=== PATIENT | male | born 1940 | race African-American/Black ===

== ENCOUNTER 2023-07-23 08:43 | Emergency (ER) | payer OTHER, MEDICAID ==
[~2023-07-23] VITALS: Ht 170.2 cm; Wt 82.9 kg
[2023-07-23] MEDS ORDERED: HYDR-4798 PO (12:31)
[2023-07-23 14:06] VITALS: BP 164/62; PULSE 75; RESP 15; TEMP 98.6; O2SAT 97
== END 2023-07-23 14:09 | disposition home or self-care (01) ==
LOC: ER 08:43
DX: S23.3XXA Sprain of ligaments of thoracic spine, initial encounter (principal); S13.8XXA Sprain of joints and ligaments of other parts of neck, initial encounter; I10 Essential (primary) hypertension; M19.90 Unspecified osteoarthritis, unspecified site; Z98.890 Other specified postprocedural states; X58.XXXA Exposure to other specified factors, initial encounter; Y93.89 Activity, other specified; Y92.89 Other specified places as the place of occurrence of the external cause; Y99.8 Other external cause status
CPT/HCPCS: 72125; 72128; 93005

== ENCOUNTER 2024-10-08 08:19 | Inpatient (IN) | payer MEDICARE, MEDICAID ==
[~2024-10-08] VITALS: Ht 167.6 cm; Wt 81.3 kg
[~2024-10-08 08:19] MED LIST: HYDR-4798 PO
[2024-10-08 08:54] LABS: Hematocrit 40.9 % (41.0-53.0); Hemoglobin 13.2 g/dL (13.5-17.5); Mean Corpuscular Hemoglobin 28.9 pg (28.0-32.0); Mean Corpuscular Volume 89.5 fL (80.0-100.0); Nucleated Red Blood Cells % 0.0 %
--- NOTE | 2024-10-08 09:01 | DVH ---
CHEST RADIOGRAPH Indication: chest pain Technique: Single frontal view of the chest was obtained COMPARISON: None FINDINGS: Lines and Tubes: None Lungs: Clear Pleura: No effusion. No pneumothorax. Cardiomediastinal contours: Unremarkable Bones: Unremarkable IMPRESSION: No acute disease.
[2024-10-08 09:11] VITALS: PULSE 65; RESP 20; O2SAT 97
--- NOTE | 2024-10-08 09:18 | ED.PDOC ---
History of Present Illness HPI Comments 84-year-old male with PMHX COPD, DM, [place] presents with a chief complaint of chest pain x 2 weeks with associated SOB. Patient states that his pain is localized to his sternal region, nonradiating, nonexertional, and describes as tightness. Patient mentions that he has an inhaler at home that he uses, but it has not provided him with any relief. Patient is not on supplemental oxygen. Chief Complaint: Chest Pain Time Seen by MD: 09:05 Primary Care Provider: unknown Reviewed Notes: Medications, Allergies Allergies: Coded Allergies: NO KNOWN ALLERGIES (Unverified , 07/23/23) Home Meds Active Scripts Hydrocodone-Acetaminophen (Hydrocodone Bitartrate/AC 10-325 mg) 1 Tab Tab, 1 TAB PO QIDPRN, #20 TAB Prov:YASMEEN BURLESON MD 07/23/23 Information Source: Patient Mode of Arrival: Ambulatory Severity: Moderate Timing: Days Duration: Since onset Prehospital treatment: None Past Medical History PAST MEDICAL HISTORY: Arthritis, COPD, DM, HTN Past Medical History (Other): HARD OF HEARING Family History Family History: Reviewed,noncontributory to illness Social History Smoker: Non-Smoker Alcohol: Denies ETOH Use Drugs: Denies Drug Use Lives In: Home Constitutional: denies: chills, diaphoresis, fatigue, fever, malaise, sweats, w eakness, others EENTM: denies: blurred vision, double vision, ear bleeding, ear discharge, ear drainage, ear pain, ear ringing, eye pain, eye redness, hearing loss, mouth pain, mouth swelling, nasal discharge, nose bleeding, nose congestion, nose pain, photophobia, tearing, throat pain, throat swelling, voice changes, others Respiratory: reports: shortness of breath; denies: cough, hemoptysis, orthopnea, SOB at rest, SOB with excertion, stridor, wheezing, others Cardiovascular: reports: chest pain; denies: dizzy spells, diaphoresis, Dyspnea on exertion, edema, irregular heart beat, left arm pain, lightheadedness, palpitations, PND, syncope, others Gastrointestinal: denies: abdomen distended, abdominal pain, blood streaked bowels, constipated, diarrhea, dysphagia, difficulty swallowing, hematemesis, melena, nausea, poor appetite, poor fluid intake, rectal bleeding, rectal pain, vomiting, others Genitourinary: denies: burning, dysuria, flank pain, frequency, hematuria, incontinence, penile discharge, penile sore, pain, testicle pain, testicle swelling, urgency, others Neurological: denies: dizziness, fainting, headache, left sided numbness, left sided weakness, numbness, paresthesia, pre-existing deficit, right sided numbness, right sided weakness, seizure, speech problems, tingling, tremors, weakness, others Musculoskeletal: denies: back pain, gout, joint pain, joint swelling, muscle pain, muscle stiffness, neck pain, others Integumetry: denies: bruises, change in color, change in hair/nails, dryness, laceration, lesions, lumps, rash, wounds, others Allergic/Immunocompromised: denies: Difficulty Healing, Frequent Infections, Hives, Itching, others Hematologic/Lymphatic: denies: anemia, blood clots, easy bleeding, easy bruising, swollen glands, others Endocrine: denies: excessive hunger, excessive sweating, excessive thirst, excessive urination, flushing, intolerance to cold, intolerance to heat, unexplained weight gain, unexplained weight loss, others Psychiatric: denies: anxiety, bipolar disorder, depression, hopeless, panic disorder, schizophrenia, sleepless, suicidal, others All Other Systems: Reviewed and Negative Physical Exam General Appearance: No Apparent Distress, Normal HEENT: Normal ENT Inspection, Pharynx Normal, TMs Normal Neck: Full Range of Motion, Non-Tender, Normal, Normal Inspection Respiratory: Chest Non-Tender, Lungs Clear, No Accessory Muscle Use, No Respiratory Distress, Normal Breath Sounds Cardiovascular: No Edema, No JVD, No Murmur, No Gallop, Normal Peripheral Pulses, Regular Rate/Rhythm Breast Exam: Deferred Gastrointestinal: No Organomegaly, Non Tender, No Pulsatile Mass, Normal Bowel Sounds, Soft Genitalia: Deferred Pelvic: Deferred Rectal: Deferred Extremities: No calf tenderness, Normal capillary refill, Normal inspection, Normal range of motion, Non-tender, No pedal edema Musculoskeletal : Apperance: Normal Neurologic: Alert, skiagrapher II-XII nml as Tested, No Motor Deficits, Normal Affect, Normal Mood, No Sensory Deficits Cerebellar Function: Normal Reflexes: Normal Skin: Dry, Normal Color, Warm Lymphatic: No Adenopathy Was a procedure done? Was a procedure done?: No Differential Dx Considerations may include: ACS, CVA, viral syndrome, electrolyte abnormality, pneumonia X-Ray, Labs, Meds, VS Vital Signs Date Time Temp Pulse Resp B/P (MAP) Pulse Ox O2 Delivery O2 Flow Rate FiO2 10/08/24 09:31 65 20 183/63 10/08/24 09:11 65 20 97 Room Air* 0 21 10/08/24 09:11 98.0 65 20 183/63 (103) 97 98.0 10/08/24 08:27 62 10/08/24 08:21 98.0 61 18 191/55 92 98.0 Lab Test 10/08/24 09:55 10/08/24 08:43 Range/Units Troponin I High Sensitivity Pending 15 </=54 ng/L White Blood Count 6.4 4.4-10.8 10^3/uL Red Blood Count 4.57 4.5-5.90 10^6/uL Hemoglobin 13.2 L 13.5-17.5 g/dL Hematocrit 40.9 L 41.0-53.0 % Mean Corpuscular Volume 89.5 80.0-100.0 fL Mean Corpuscular Hemoglobin 28.9 28.0-32.0 pg Mean Corpuscular Hemoglobin Concent 32.3 32.0-36.0 g/dL Red Cell Distribution Width 14.4 H 11.8-14.3 % Platelet Count 165 140-450 10^3/uL Mean Platelet Volume 8.0 6.9-10.8 fL Neutrophils (%) (Auto) 64.7 37.0-80.0 % Lymphocytes (%) (Auto) 24.6 10.0-50.0 % Monocytes (%) (Auto) 8.1 0.0-12.0 % Eosinophils (%) (Auto) 1.9 0.0-7.0 % Basophils (%) (Auto) 0.7 0.0-2.0 % Neutrophils # (Auto) 4.2 1.6-8.6 10 ^3/uL Lymphocytes # (Auto) 1.6 0.4-5.4 10 ^3/uL Monocytes # (Auto) 0.5 0-1.3 10 ^3/uL Eosinophils # (Auto) 0.1 0-0.8 10 ^3/uL Basophils # (Auto) 0 0-0.2 10 ^3/uL Nucleated Red Blood Cells 0.0 % Sodium Level 142 136-145 mmol/L Potassium Level 3.9 3.5-5.1 mmol/L Chloride Level 107 98-107 mmol/L Carbon Dioxide Level 25 20-31 mmol/L Anion Gap 10 5-15 Blood Urea Nitrogen 23 9-23 mg/dL Creatinine 1.34 H 0.700-1.30 mg/dL Glomerular Filtration Rate Calc 52 >90 mL/min BUN/Creatinine Ratio 17.2 10.0-20.0 Serum Glucose 91 74-106 mg/dL Calcium Level 9.7 8.7-10.4 mg/dL Current Medications Medications (Trade) Dose Ordered Sig/Julian Route Start Time Stop Time Status Last Admin Morphine Sulfate 4 mg ONCE ONCE IV 10/08/24 09:15 10/08/24 09:16 DC 10/08/24 09:31 Ondansetron HCl (Zofran) 4 mg ONCE ONCE IV 10/08/24 09:15 10/08/24 09:16 DC 10/08/24 09:29 Time of 1ST Reevaluation: 09:35 Reevaluation 1ST: Unchanged Patient Education/Counseling: Diagnosis, Treatment Family Education/Counseling: No Family Present SEPSIS Sepsis Screen Date sepsis recognized/suspect: Oct 08, 2024 Time Sepsis recognized/suspect: 820 Recent Procedure: No On Antibiotic Therapy: No Respiratory Rate >20: No Heart Rate >90: No Temp<36 C (96.8 F) or >38.3 C: No SBP <90 or MAP <65 mmHG: No New Acute Mental Status Change: No Is the patient on CPAP, BIPAP,: No Physician Orders Chest Portable (10/08/24 08:28) Electrocardigram (10/08/24 08:28) Troponin-I Hs (10/08/24 09:28) Troponin-I Hs (10/08/24 11:28) Electrocardigram (10/08/24 09:28) Electrocardigram (10/08/24 11:28) Vital Signs Date Time Temp Pulse Resp B/P (MAP) Pulse Ox O2 Delivery O2 Flow Rate FiO2 10/08/24 09:31 65 20 183/63 10/08/24 09:11 65 20 97 Room Air* 0 21 10/08/24 09:11 98.0 65 20 183/63 (103) 97 98.0 10/08/24 08:27 62 10/08/24 08:21 98.0 61 18 191/55 92 98.0 Laboratory Tests Test 10/08/24 08:43 White Blood Count 6.4 10^3/uL (4.4-10.8) Medications Medications Dose Ordered Sig/Julian Route Start Time Stop Time Status Last Admin Dose Admin Morphine Sulfate 4 mg ONCE ONCE IV 10/08/24 09:15 10/08/24 09:16 DC 10/08/24 09:31 Ondansetron HCl 4 mg ONCE ONCE IV 10/08/24 09:15 10/08/24 09:16 DC 10/08/24 09:29 Departure 1 Departure Time of Disposition: 10:04 (Patient presented with chest pain that was co ncerning for possible STEMI, ACS, PE, Pneumonia, Muscle Strain, COPD, Dissection. Data: 1. I ordered and reviewed the result of at least 3 labs including a CBC, BMP, and Troponin. 2. I independently interpreted the following tests: EKG which shows sinus arrhythmia and Chest X-ray which shows benign chest.Risk:This patient has a high risk of morbidity due to further diagnostic testing or treatment and may suffer from an acute cardiac or respiratory disorder. Workup reveals concern for ACS and patient should be admitted for further workup and possible expert consultation. ) Impression: Primary Impression: Acute chest pain Disposition: ADMITTED INPATIENT Admit to: Med Surg Condition: Serious Critical Care Note Critical Care Time?: Yes Critical care comment: Acute chest pain Authorized and Performed by: Sandee Bravo MD Total critical care time: Approximately 42 minutes Due to a high probability of clinically significant, life threatening deterioration, the patient required my highest level of preparedness to intervene emergently and I personally spent this critical care time directly and personally managing the patient. This critical care time included obtaining a history; examining the patient; pulse oximetry; ordering and review of studies; arranging urgent treatment with development of a management plan; evaluation of patient's response to treatment; frequent reassessment; and, discussions with other providers. This critical care time was performed to assess and manage the high probability of imminent, life-threatening deterioration that could result in multi-organ failure. It was exclusive of separately billable procedures and treating other patients and teaching time. Please see my other sections and the rest of the note for further information on patient assessment and treatment. Stability Stability form required: No Heart Score Heart Score: Heart Score Response (Comments) Value History Moderate Suspicious 1 EKG Repolarization Disturb 1 Age >65 2 Risk Factors >3 or Hx ASHD 2 Troponin Normal limit 0 Total 6 I personally scribed for SANDEE BRAVO MD ([email or web address]) on 10/08/24 at 09:18. Electronically submitted by Steven Jane [email or web address]). SANDEE BRAVO MD Oct 08, 2024 09:18
[2024-10-08 09:20] LABS: Potassium 3.9 mmol/L (3.5-5.1); Sodium 142 mmol/L (136-145)
[2024-10-08 09:21] LABS: Anion Gap 10 (5-15); Calcium 9.7 mg/dL (8.7-10.4); Carbon Dioxide 25 mmol/L (20-31)
[2024-10-08 09:26] LABS: Blood Urea Nitrogen 23 mg/dL (9-23); Chloride 107 mmol/L (98-107); Glucose 91 mg/dL (74-106)
[2024-10-08 09:27] LABS: BUN/Creatinine Ratio 17.2 (10.0-20.0)
[2024-10-08] MEDS: ONDANSETRON HCL 4 MG/2 ML VIAL IV ONE (09:29)
[2024-10-08] MEDS: MORPHINE SULFATE 4 MG/ML SYR/VIAL IV ONE (09:31)
[2024-10-08] MEDS ORDERED: ROSU10TA64 PO (11:40)
[2024-10-08] MEDS ORDERED: FLUT1AER3 INH (11:40)
[2024-10-08] MEDS ORDERED: NIFE1TAB31 PO (11:40)
[2024-10-08] MEDS ORDERED: ASPI81CH49 PO (11:40)
[2024-10-08] MEDS ORDERED: ENAL1TAB47 PO (11:40)
[2024-10-08] MEDS ORDERED: TAMS0.4C39 PO (11:40)
[2024-10-08] MEDS ORDERED: METF-370 PO (11:40)
[2024-10-08] MEDS ORDERED: NITROGLYCERIN 0.4 MG SL TAB SL PRN (11:45)
[2024-10-08] MEDS ORDERED: HYDROcodone-ACET 5/325MG TAB PO PRN (11:45)
[2024-10-08] MEDS ORDERED: ONDANSETRON HCL 4 MG/2 ML VIAL IV PRN (11:45)
[2024-10-08] MEDS ORDERED: ACETAMINOPHEN 325 MG TAB PO PRN (11:45)
[2024-10-08] MEDS ORDERED: DOCUSATE SOD 100 MG CAP PO PRN (11:45)
[2024-10-08] MEDS ORDERED: MORPHINE SULFATE INJ 2 MG/ml SYRG IV PRN (11:45)
--- NOTE | 2024-10-08 11:48 | DVHHP2 ---
History of Present Illness Reason for Visit: Chest pain, shortness of breath History of Present Illness Peyton Nair is an 84-year-old male with past medical history of hypertension, hyperlipidemia, diabetes, COPD, arthritis, and hard of hearing who came to the hospital for chest pain. Patient states he has been experiencing sharp chest pain with associated shortness of breath for about 3 months. He states his symptoms worsen with exertion. He has not sought medical treatment for his chest pain until today. The pain was not getting better so he decided to get evaluated. Patient does follow up with a primary care provider, but is not followed by cardiology. 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) Musculoskeletal: Osteoarthritis Endocrine: Diabetes Past Surgical History: Other (prostate surgery) Family History: None Smoke: No ALCOHOL: none Drugs: None Lives: Alone Domestic Violence: Neg Review of Systems Constitutional: No: Fever, Chills, Sweats, Weakness, Malaise, Other Eyes: No: Pain, Vision change, Conjunctivae inflammation, Eyelid inflammation, Other, Redness ENT: No: Ear pain, Ear discharge, Nose pain, Nose discharge, Nose congestion, Mouth pain, Mouth swelling, Throat pain, Throat swelling, Other Respiratory: Shortness of breath; No: Cough, Dry, SOB with excertion, Wheezing, Hemoptysis, Pleuritic Pain, Sputum, Wheezing, Other Cardiovascular: Chest Pain; No: Palpitations, Orthopnea, Paroxysmal Noc. Dyspnea, Edema, Lt Headedness, Other Gastrointestinal: No: Nausea, Vomiting, Abdominal Pain, Diarrhea, Constipation, Melena, Hematochezia, Other Genitourinary: No Dysuria, No Frequency, No Incontinence, No Hematuria, No Retention, No Other Musculoskeletal: No: other, neck pain, shoulder pain, arm pain, back pain, hand pain, leg pain, foot pain Skin: No: Rash, Lesions, Jaundice, Bruising, Other Neurological: No: Weakness, Numbness, Incoordination, Change in speech, Confusion, Seizures, Other Allergies: Coded Allergies: NO KNOWN ALLERGIES (Unverified , 07/23/23) Exam Vital Signs Vital Signs Date Time Temp Pulse Resp B/P (MAP) Pulse Ox O2 Delivery O2 Flow Rate FiO2 10/08/24 11:30 74 10/08/24 10:01 98.0 18 109/55 (73) 95 98.0 10/08/24 09:11 Room Air* 0 21 General Appearance: Alert, Oriented X3, Cooperative, mild distress HEENT: Atraumatic, PERRLA, Other (hard of hearing) Respiratory: Clear to auscultation, Normal air movement Cardiovascular: Regular rate, Normal S1, Normal S2, No murmurs Abdominal: Normal bowel sounds, Soft, No tenderness, No hepatospenomegaly Extremities: No clubbing, No cyanosis, No edema, Normal pulses Skin: No rashes, No breakdown, No significant lesion Neuro: Normal gait, Normal speech, Strength at 5/5 X4 ext, Normal tone Psych/Mental Status: Mental status NL, Mood NL Labs/Xrays Labs Test 10/08/24 09:55 10/08/24 08:43 Range/Units Troponin I High Sensitivity 14 </=54 ng/L White Blood Count 6.4 4.4-10.8 10^3/uL Red Blood Count 4.57 4.5-5.90 10^6/uL Hemoglobin 13.2 L 13.5-17.5 g/dL Hematocrit 40.9 L 41.0-53.0 % Mean Corpuscular Volume 89.5 80.0-100.0 fL Mean Corpuscular Hemoglobin 28.9 28.0-32.0 pg Mean Corpuscular Hemoglobin Concent 32.3 32.0-36.0 g/dL Red Cell Distribution Width 14.4 H 11.8-14.3 % Platelet Count 165 140-450 10^3/uL Mean Platelet Volume 8.0 6.9-10.8 fL Neutrophils (%) (Auto) 64.7 37.0-80.0 % Lymphocytes (%) (Auto) 24.6 10.0-50.0 % Monocytes (%) (Auto) 8.1 0.0-12.0 % Eosinophils (%) (Auto) 1.9 0.0-7.0 % Basophils (%) (Auto) 0.7 0.0-2.0 % Neutrophils # (Auto) 4.2 1.6-8.6 10 ^3/uL Lymphocytes # (Auto) 1.6 0.4-5.4 10 ^3/uL Monocytes # (Auto) 0.5 0-1.3 10 ^3/uL Eosinophils # (Auto) 0.1 0-0.8 10 ^3/uL Basophils # (Auto) 0 0-0.2 10 ^3/uL Nucleated Red Blood Cells 0.0 % Sodium Level 142 136-145 mmol/L Potassium Level 3.9 3.5-5.1 mmol/L Chloride Level 107 98-107 mmol/L Carbon Dioxide Level 25 20-31 mmol/L Anion Gap 10 5-15 Blood Urea Nitrogen 23 9-23 mg/dL Creatinine 1.34 H 0.700-1.30 mg/dL Glomerular Filtration Rate Calc 52 >90 mL/min BUN/Creatinine Ratio 17.2 10.0-20.0 Serum Glucose 91 74-106 mg/dL Calcium Level 9.7 8.7-10.4 mg/dL CHEST RADIOGRAPH FINDINGS: Lines and Tubes: None Lungs: Clear Pleura: No effusion. No pneumothorax. Cardiomediastinal contours: Unremarkable Bones: Unremarkable IMPRESSION: No acute disease. SEPSIS Sepsis Screen Date sepsis recognized/suspect: Oct 08, 2024 Time Sepsis recognized/suspect: 910 Recent Procedure: No On Antibiotic Therapy: No Respiratory Rate >20: No Heart Rate >90: No Temp<36 C (96.8 F) or >38.3 C: No SBP <90 or MAP <65 mmHG: No New Acute Mental Status Change: No Is the patient on CPAP, BIPAP,: No Physician Orders Chest Portable (10/08/24 08:28) Electrocardigram (10/08/24 08:28) Troponin-I Hs (10/08/24 11:28) Electrocardigram (10/08/24 09:28) Electrocardigram (10/08/24 11:28) Admit (10/08/24 11:35) Code Status (10/08/24 11:35) 2 Gm Sodium Diet (10/08/24 Lunch) Hydrocodone-Acet 5/325mg Tab (Hobbs 5/32 (10/08/24 11:45) Ondansetron Hcl (Zofran) (10/08/24 11:45) Docusate Sodium Capsule (Colace Capsule) (10/08/24 11:45) Complete Blood Count (10/09/24 04:00) Comprehensive Metabolic Panel (10/09/24 04:00) Echo 2d Mode Cardiac Dop (10/08/24 11:35) Condition: Serious (10/08/24 11:35) Acetaminophen Tablet (Tylenol Tablet) (10/08/24 11:45) Nitroglycerin Sublingual (Ntrostat Subli (10/08/24 11:45) Morphine Sulfate Injection (10/08/24 11:45) Stat Ekg For Chest Pain (10/08/24 11:35) Notify Md Of Changes From Base (10/08/24 11:35) Racket Stringer For 24 Hours (10/08/24 11:35) Emergency Dysrhythmia Protocol (10/08/24 11:35) Rhythm Strips Once Every Shift (10/08/24 11:35) Oxygen By Nasal Cannula (10/08/24 11:35) Hydrocodone-Acet 10/325mg Tab (Hobbs 10/ (10/08/24 12:00) Vital Signs Date Time Temp Pulse Resp B/P (MAP) Pulse Ox O2 Delivery O2 Flow Rate FiO2 10/08/24 11:30 74 10/08/24 10:01 98.0 70 18 109/55 (73) 95 98.0 10/08/24 10:01 70 18 109/55 10/08/24 09:52 76 10/08/24 09:31 65 20 183/63 10/08/24 09:11 65 20 97 Room Air* 0 21 10/08/24 09:11 98.0 65 20 183/63 (103) 97 98.0 10/08/24 08:27 62 10/08/24 08:21 98.0 61 18 191/55 92 98.0 Laboratory Tests Test 10/08/24 08:43 White Blood Count 6.4 10^3/uL (4.4-10.8) Medications Medications Dose Ordered Sig/Julian Route Start Time Stop Time Status Last Admin Dose Admin Morphine Sulfate 4 mg ONCE ONCE IV 10/08/24 09:15 10/08/24 09:16 DC 10/08/24 09:31 4 MG Ondansetron HCl 4 mg ONCE ONCE IV 10/08/24 09:15 10/08/24 09:16 DC 10/08/24 09:29 4 MG Assessment/Plan Assessment/Plan Assessment: Acute chest pain, Hypertension, Hyperlipidemia, COPD, Diabetes, Plan: Admit to Tele, Cardiology consult, ECHO, Accu checks Q AC&HS with sliding scale, TSH, Lipid panel, A1c, Home medications reconciled, Plan discussed with: Patient My Orders Orders - SCHWING,LETA R STUMP SHOOTER Procedure Category Date Status Time Admit ADMIT 10/08/24 Transmitted 11:35 Code Status CODE 10/08/24 Transmitted 11:35 2 Gm Sodium Diet DIET 10/08/24 Transmitted Lunch Hydrocodone-Acet PHA 10/08/24 Transmitted 5/325mg Tab (Hobbs 11:45 Ondansetron Hcl PHA 10/08/24 Transmitted (Zofran) 11:45 Docusate Sodium PHA 10/08/24 Transmitted Capsule (Colace 11:45 Complete Blood Count LAB 10/09/24 Verified 04:00 Comprehensive LAB 10/09/24 Verified Metabolic Panel 04:00 Echo 2d Mode Cardiac US 10/08/24 Logged DOP 11:35 Condition: Serious DEZ 10/08/24 Transmitted 11:35 Acetaminophen Tablet PHA 10/08/24 Transmitted (Tylenol Tablet) 11:45 Nitroglycerin PHA 10/08/24 Transmitted Sublingual (Ntrostat 11:45 Morphine Sulfate PHA 10/08/24 Transmitted Injection 11:45 Stat Ekg For Chest DEZ 10/08/24 Transmitted Pain 11:35 Notify Md Of Changes DEZ 10/08/24 Transmitted From Base 11:35 Racket Stringer For DEZ 10/08/24 Transmitted 24 Hours 11:35 Emergency Dysrhythmia DEZ 10/08/24 Transmitted Protocol 11:35 Rhythm Strips Once [facility] 10/08/24 Transmitted Every Shift 11:35 Oxygen By Nasal RT 10/08/24 Transmitted Cannula 11:35 Hydrocodone-Acet PHA 10/08/24 Transmitted 10/325mg Tab (Hobbs 12:00 Date of Service: Oct 08, 2024 Billing Provider: LETA VAZQUEZ Common Visit Codes: [id number] INP/OBS CARE (MOD) LETA VAZQUEZP Oct 08, 2024 11:48
[2024-10-08] MEDS ORDERED: DEXTROSE (50%) 50ML SYRG IV PRN (12:00)
[2024-10-08] MEDS: InsuLIN REG 1unit/0.01ml Soln (100units/ml) SC SCH ×2 (17:00→21:51)
[2024-10-08] MEDS: ACCU-CHEK COMFORT CURVE STRIP VI SCH (17:20)
[2024-10-08 19:20] VITALS: BP 180/55; PULSE 68; RESP 17; TEMP 97.3; O2SAT 93
[2024-10-08 19:35] VITALS: BP 159/61; PULSE 71; RESP 18; O2SAT 94
[2024-10-08] MEDS: ATORVASTATIN 20 MG TAB PO SCH (21:49)
[2024-10-09] VITALS (13 sets, daily range): BP systolic 132–173; BP diastolic 51–71; PULSE 53–89; RESP 12–16; TEMP 97.4–99; O2SAT 93–98
[2024-10-09] MEDS: HYDROcodone-ACET 10/325MG TAB PO PRN (01:01)
--- NOTE | 2024-10-09 06:31 | ECG ---
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
--- NOTE | 2024-10-09 06:31 | ECG ---
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
[2024-10-09 06:36] LABS: Hematocrit 37.1 % (41.0-53.0); Hemoglobin 12.4 g/dL (13.5-17.5); Mean Corpuscular Hemoglobin 29.9 pg (28.0-32.0); Mean Corpuscular Volume 89.5 fL (80.0-100.0); Nucleated Red Blood Cells % 0.1 %
[2024-10-09 06:55] LABS: Alanine Aminotransferase 12 U/L (7-40); Albumin 3.8 g/dL (3.2-4.8); Alkaline Phosphatase 40 U/L (46-116); Anion Gap 8 (5-15); BUN/Creatinine Ratio 15.9 (10.0-20.0); Blood Urea Nitrogen 20 mg/dL (9-23); Calcium 9.5 mg/dL (8.7-10.4); Carbon Dioxide 25 mmol/L (20-31); Chloride 110 mmol/L (98-107); Cholesterol 107 mg/dL (< 200); Glucose 79 mg/dL (74-106); Potassium 4.8 mmol/L (3.5-5.1); Sodium 143 mmol/L (136-145); Total Protein 6.2 g/dL (5.7-8.2); Triglycerides 62 mg/dL (< 150)
[2024-10-09 06:56] LABS: Bilirubin, Total 0.7 mg/dL (0.2-1.0)
[2024-10-09 06:58] LABS: HDL Cholesterol 36 mg/dL (40-59)
[2024-10-09] MEDS: IPRATROPIUM BROM 0.5 MG/2.5ML INH SOL NEB SCH (07:53)
[2024-10-09] MEDS: ALBUTEROL SULF 2.5 MG/0.5ML(0.5%) NEB SOLN NEB SCH (07:53)
[2024-10-09] MEDS: Fluticasone-Umeclidinium-Vilan (Trelegy Ellipta 100-62.5-25 Mcg/I PO SCH (10:00)
[2024-10-09] MEDS: TAMSULOSIN HYDROCHLORIDE 0.4 MG CAP PO SCH (10:32)
[2024-10-09] MEDS: ENALAPRIL MALEATE 10 MG TAB PO SCH (10:34)
[2024-10-09] MEDS: hydroCHLOROthiazide 25 MG TAB PO ONE (10:35)
[2024-10-09] MEDS: PANTOPRAZOLE 40 MG/10 ML VIAL INJ IV ONE (12:00)
--- NOTE | 2024-10-09 13:40 | ECG ---
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
--- NOTE | 2024-10-09 15:48 | DVH ---
CLINICAL HISTORY: weight loss, lung cancer TECHNIQUE: CT of the chest was performed without intravenous contrast. This exam was performed accord ing to our departmental dose optimization program. Up-to-date CT equipment and radiation dose reducti on techniques are utilized as appropriate. Radiation optimization: All CT scans at this facility use at least one of these dose optimization techniques: automated exposure control mA and/or kV adjustme nt per patient size (includes targeted exams where dose is matched to clinical indication) or iterat rose reconstruction. COMPARISON: XY CHEST PORTABLE on DOS: 10/08/24, CT THORACIC SPINE WO CONTRAS on DOS: 07/23/23 FINDINGS: Lower Neck: Unremarkable Axilla, Mediastinum and Angelica: Unremarkable. Heart and Great Vessels: Normal-sized heart with trace pericardial fluid. 3-vessel calcified coronary artery disease up to moderate in the left anterior descending coronary artery. There are mild viviane l annular calcifications. Mild ectasia of the ascending thoracic aorta measuring 3.8 cm. Moderate ariel cified plaque in the thoracic aorta. Enlargement of the main pulmonary artery measuring 3.9 cm on ser ies 2, image 56. Airway, Lungs and Pleura: Trachea and central airways are patent. There is moderate centrilobular emp hysema. Sub 5 mm nodule along the left major fissure on series 3, image 35. Linear bibasilar scarring and/or atelectasis. No airspace consolidation, pleural effusion, or pneumothorax. Upper Abdomen: Scattered hypodensities in the liver are not optimally evaluated without contrast. The re is a 1.4 cm right adrenal gland nodule on series 2, image 108. Chest Wall and Osseous Structures: Mild multilevel thoracic spondylosis. No destructive osseous lesio n. IMPRESSION: Moderate centrilobular emphysema. Sub 5 mm nodule along the left major fissure, nonspecific on initial exam though may be postinfectiou s or postinflammatory. Follow-up CT chest could be obtained in 1 year for re-evaluation if clinically indicated. Small hypodensities in the liver not optimally evaluated without contrast. DDX includes cysts or maritza ngiomas. Metastatic disease considered less likely. Compare to any prior imaging if available. If no prior imaging is available for comparison, this could be further evaluated with nonemergent / outpat ient contrast-enhanced CT abdomen /pelvis for further evaluation. There is 3-vessel calcified coronary artery disease up to moderate in the left anterior descending co ronary artery. Dilated main pulmonary artery which can be seen in the setting of pulmonary hypertension.
--- NOTE | 2024-10-09 18:13 | DVHPNRES ---
Progress Note Date Seen: Oct 09, 2024 Resident Creating Document: JASWANT ROBERT RESIDENT Medical Necessity Reason Pt with a Central, PICC or Fol: No Subjective Review of Systems Peyton Nair is an 84-year-old male with past medical history of hypertension, hyperlipidemia, diabetes, COPD, presented to the ER for chest pain, associated with difficulty breathing. He complained of shortness of breaths and chest pain starting 3 weeks ago, worsening lately. The pain is constant, aching, burning, weak, radiating to both shoulders and his back. His symptoms worsened on exertion. He also complains of difficulty in swallowing and pain in epigastrium. No history of fever, nausea, vomiting, constipation. PMHx: Hypertension, hyperlipidemia, diabetes, COPD PSHx: Prostatectomy Family history: GI cancer in brother Social history: Quit smoking 30 years ago, nonalcoholic, no recreational drug. Lives in a home with family support. Home medication: Aspirin, Tylenol, oxycodone, nifedipine, enalapril ROS: Constitutional: Weight loss 8 lb over last year. HEENT: Reduced hearing bilateral ears. Respiratory: Shortness of breath Cardiovascular: Chest Pain GI: Difficulty swallowing, pain in epigastrium. Musculoskeletal: Denies myalgias and joint pain Skin: Denies rash and pruritus. Neurological: Denies dizziness, headache, vision He was examined at bedside today. He is in no apparent distress. Complains of chest pain, radiating to his bilateral shoulders. Objective vital signs Vital Sign Date Time Temp Pulse Resp B/P (MAP) Pulse Ox O2 Delivery O2 Flow Rate FiO2 10/09/24 16:59 99.0 71 16 168/56 (93) 98 99.0 10/09/24 14:55 21 10/09/24 08:00 Room Air* 0 Total Intake and Output 10/08/24 10/08/24 10/09/24 15:00 23:00 07:00 Intake Total 100 ml Balance 100 ml medications Current Medications Medications Dose Ordered Sig/Julian Route Start Time Stop Time Status Last Admin Dose Admin Ondansetron HCl 4 mg Q4HP PRN IV 10/08/24 11:45 Docusate Sodium 100 mg BIDPRN PRN PO 10/08/24 11:45 Acetaminophen 650 mg Q6HP PRN PO 10/08/24 11:45 Enalapril Maleate 10 mg DAILY PO 10/09/24 10:00 10/09/24 10:34 10 MG Nifedipine 30 mg DAILY PO 10/09/24 10:00 10/09/24 10:34 30 MG Tamsulosin HCl 0.4 mg DAILY PO 10/09/24 10:00 10/09/24 10:32 0.4 MG Aspirin 81 mg DAILY PO 10/09/24 10:00 10/09/24 10:35 81 MG Patient Own Medication 1 puff DAILY PO 10/09/24 10:00 Atorvastatin Calcium 20 mg HS PO 10/08/24 22:00 10/08/24 21:49 20 MG Diagnostic Test (Pha) 1 strip ACHS 10/08/24 17:00 10/09/24 16:07 1 STRIP Insulin Human Regular HS SC 10/08/24 22:00 10/08/24 21:51 3 UNITS Insulin Human Regular AC SC 10/08/24 17:00 Dextrose 50 ml UD PRN IV 10/08/24 12:00 Hydrochlorothiazide 25 mg DAILY PO 10/10/24 10:00 Ipratropium Gordon 0.5 mg Q6HWA [facility] 10/09/24 12:00 Albuterol 2.5 mg Q6HWA [facility] 10/09/24 12:00 Pantoprazole Sodium 40 mg DAILY IV 10/10/24 10:00 Examination General: Patient alert and oriented in person, place and time. Patient following commands. HEENT: Normocephalic, atraumatic, moist mucous membranes Respiratory/pulmonary: Clear lungs bilaterally, no associated crackles or wheezes. Cardiovascular: Normal heart sounds S1 and S2 with no associated murmurs Abdomen: Abdomen nondistended, there is no pain to palpation in any of the abdominal quadrants, no palpable masses. Extremities: There is no peripheral edema present at the lower extremities. Peripheral Pulses: 3+ Radial (R). 3+ Radial (L). 3+ Dorsalis pedis (R). 3+ Dorsalis pedis(L) Skin: No rashes or pruritus, there is no sacral edema present at this time. Neurological: Intact cranial nerves with no focal neurologic deficits laboratory and microbiology Laboratory Tests 10/09/24 05:50 Test 10/09/24 05:50 Range/Units Serum Glucose 79 74-106 mg/dL Problem List/Assessment/Plan Problem List/Assessment/Plan Acute chest pain, rule out ACS * Troponins WNL * EKG revealed LVH * pain management with morphine, [place] * CT chest showed 3-vessel calcified coronary artery disease up to moderate in the left anterior descending coronary artery. Sub 5 mm nodule along the left major fissure, nonspecific on initial exam though may be postinfectious or postinflammatory, will follow-up CT chest could be obtained in 1 year * On telemetry * Echo ordered * Cardiology consulted Hypertensive urgency, resolved * Managed with HCTZ med, nifedipine, enalapril, NTG COPD exacerbation, possible Pulmonary hypertension * Administered med-nebs * CT chest revealed moderate centrilobular emphysema, pulmonary hypertension History of Hyperlipidemia Diabetes mellitus * Continue atorvastatin * Started on sliding scale insulin * HbA1c 7.1 DIET: Cardiac DVT PROPHYLAXIS: GI PROPHYLAXIS: Protonix CODE STATUS: Goals of care discussed with patient at bedside for more than 25 minutes. Full code DISPOSITION: Med/surge Patient's status and plan discussed with the patient. Case discussed with Dr. Nobles. Plan discussed with: Patient My Orders My Orders Orders - JASWANT ROBERT RESIDENT Procedure Category Date Status Time Chest Without Contrast CT 10/09/24 Resulted 11:43 Date of Service: Oct 09, 2024 Billing Provider: HARISH NOBLES MD Common Visit Codes: [id number] INP/OBS CARE(HIGH) JASWANT ROBERT Oct 09, 2024 18:13 HARISH NOBLES MD Oct 13, 2024 08:40
[2024-10-10] VITALS (7 sets, daily range): BP systolic 148–190; BP diastolic 50–126; PULSE 67–87; RESP 16–18; TEMP 36.5; O2SAT 90–95
[2024-10-10 08:59] LABS: Chloride 103 mmol/L (98-107); Potassium 4.2 mmol/L (3.5-5.1); Sodium 138 mmol/L (136-145)
[2024-10-10 09:00] LABS: Anion Gap 9 (5-15); Calcium 10.5 mg/dL (8.7-10.4); Carbon Dioxide 26 mmol/L (20-31)
[2024-10-10 09:05] LABS: BUN/Creatinine Ratio 13.7 (10.0-20.0); Blood Urea Nitrogen 16 mg/dL (9-23); Glucose 91 mg/dL (74-106)
[2024-10-10] MEDS: PANTOPRAZOLE 40 MG/10 ML VIAL INJ IV SCH (10:27)
[2024-10-10] MEDS: hydroCHLOROthiazide 25 MG TAB PO SCH (10:32)
--- NOTE | 2024-10-10 11:49 | ECG ---
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
[2024-10-10 12:18] LABS: Hematocrit 43.9 % (41.0-53.0); Hemoglobin 14.6 g/dL (13.5-17.5); Mean Corpuscular Hemoglobin 29.5 pg (28.0-32.0); Mean Corpuscular Volume 88.7 fL (80.0-100.0); Nucleated Red Blood Cells % 0.3 %
--- NOTE | 2024-10-10 12:19 | DVHDSRES ---
Discharge Summary Date of Admission Resident Creating Document: JASWANT ROBERT RESIDENT Oct 08, 2024 at 11:35 Date of Discharge: Oct 10, 2024 Admitting Diagnosis Acute chest pain Labs/Diagnostic Data: Laboratory Results Test 10/10/24 08:18 10/09/24 21:07 10/09/24 05:50 10/08/24 12:16 Sodium Level 138 mmol/L (136-145) Potassium Level 4.2 mmol/L (3.5-5.1) Chloride Level 103 mmol/L (98-107) Carbon Dioxide Level 26 mmol/L (20-31) Anion Gap 9 (5-15) Blood Urea Nitrogen 16 mg/dL (9-23) Creatinine 1.17 mg/dL (0.700-1.30) Glomerular Filtration Rate Calc 61 mL/min (>90) BUN/Creatinine Ratio 13.7 (10.0-20.0) Serum Glucose 91 mg/dL (74-106) Calcium Level 10.5 mg/dL (8.7-10.4) POC Glucose 135 mg/dl (70-106) Eosinophils (%) (Auto) 1.8 % (0.0-7.0) Eosinophils # (Auto) 0.1 10 ^3/uL (0-0.8) Basophils # (Auto) 0 10 ^3/uL (0-0.2) Nucleated Red Blood Cells 0.1 % Hemoglobin A1c 7.1 % A1C (<5.7) Magnesium Level 2.1 mg/dL (1.6-2.6) Total Bilirubin 0.7 mg/dL (0.2-1.0) Aspartate Amino Transferase (AST) 19 U/L (13-40) Alanine Aminotransferase (ALT) 12 U/L (7-40) Alkaline Phosphatase 40 U/L (46-116) Total Protein 6.2 g/dL (5.7-8.2) Albumin 3.8 g/dL (3.2-4.8) Triglycerides Level 62 mg/dL (< 150) Cholesterol Level 107 mg/dL (< 200) LDL Cholesterol 58 mg/dL (< 100) HDL Cholesterol 36 mg/dL (40-59) Thyroid Stimulating Hormone (TSH) 1.62 uIU/mL (0.55-4.78) Troponin I High Sensitivity 16 ng/L (</=54) Other Laboratory Tests 10/10/24 08:18 Brief Hx & Hospital Course: Brief history: Peyton Nair is an 84-year-old male with past medical history of hypertension, hyperlipidemia, diabetes, COPD, presented to the ER for chest pain, associated with difficulty breathing. He complained of shortness of breaths and intractable chest pain starting 3 weeks ago, worsening lately. The pain is constant, aching, burning, weak, radiating to both shoulders and his back. His symptoms worsened on exertion. He also complained of difficulty in swallowing and pain in epigastrium. Reported weight loss 8 lb over last year and occasional difficulty swallowing. No history of fever, nausea, vomiting, constipation. Family history significant for GI cancer in brother. Physical exam on the day of discharge: General: Patient alert and oriented in person, place and time. Patient following commands. HEENT: Temporal muscle wasting. Normocephalic, atraumatic, moist mucous membranes. Respiratory/pulmonary: Clear lungs bilaterally, no associated crackles or wheezes. Cardiovascular: Normal heart sounds S1 and S2 Abdomen: Abdomen nondistended, there is no pain to palpation in any of the abdominal quadrants, no palpable masses. Extremities: There is no peripheral edema present at the lower extremities. Peripheral Pulses: 3+ Radial (R). 3+ Radial (L). 3+ Dorsalis pedis (R). 3+ Dorsalis pedis(L) Skin: No rashes or pruritus, there is no sacral edema present at this time. Neurological: Intact cranial nerves with no focal neurologic deficits Hospital course: On admission, troponin levels were WNL, EKG revealed LVH. Monitored on telemetry. Pain management with morphine, [place], NTG. Hypertensive urgency managed with HCT, nifedipine, enalapril. CT chest showed 3-vessel calcified coronary artery disease up to moderate in the left anterior descending coronary artery. Sub 5 mm nodule along the left major fissure, nonspecific on initial exam though may be postinfectious or postinflammatory, will follow-up CT chest could be obtained in 1 year. Echo done. Discharge diagnosis: Acute chest pain, rule out ACS Hypertensive urgency, resolved COPD exacerbation, possible Pulmonary hypertension, CT finding History of Hyperlipidemia Diabetes mellitus Discharge plan: Follow-up with PCP in 1 week. Follow with Cardiology outpatient. Follow-up with GI outpatient. Continue home medications. Prescribed Protonix 40 mg tablet daily as outpatient Prescribed Carafate 1 gm twice daily as outpatient Goals of care discussed with the patient for 20 minutes; full code Discussed with the [facility] Operations or Procedures CT of the chest was performed without intravenous contrast. Lower Neck: Unremarkable Axilla, Mediastinum and Angelica: Unremarkable. Heart and Great Vessels: Normal-sized heart with trace pericardial fluid. 3- vessel calcified coronary artery disease up to moderate in the left anterior descending coronary artery. There are mild mitral annular calcifications. Mild ectasia of the ascending thoracic aorta measuring 3.8 cm. Moderate calcified plaque in the thoracic aorta. Enlargement of the main pulmonary artery measuring 3.9 cm on series 2, image 56. Airway, Lungs and Pleura: Trachea and central airways are patent. There is moderate centrilobular emphysema. Sub 5 mm nodule along the left major fissure on series 3, image 35. Linear bibasilar scarring and/or atelectasis. No airspace consolidation, pleural effusion, or pneumothorax. Upper Abdomen: Scattered hypodensities in the liver are not optimally evaluated without contrast. There is a 1.4 cm right adrenal gland nodule on series 2, image 108. Chest Wall and Osseous Structures: Mild multilevel thoracic spondylosis. No destructive osseous lesion. IMPRESSION: Moderate centrilobular emphysema. Sub 5 mm nodule along the left major fissure, nonspecific on initial exam though may be postinfectious or postinflammatory. Follow-up CT chest could be obtained in 1 year for re-evaluation if clinically indicated. Small hypodensities in the liver not optimally evaluated without contrast. DDX includes cysts or hemangiomas. Metastatic disease considered less likely. Compare to any prior imaging if available. If no prior imaging is available for comparison, this could be further evaluated with nonemergent / outpatient contrast-enhanced CT abdomen /pelvis for further evaluation. There is 3-vessel calcified coronary artery disease up to moderate in the left anterior descending coronary artery. Dilated main pulmonary artery which can be seen in the setting of pulmonary hypertension. ---- CHEST RADIOGRAPH Indication: chest pain Technique: Single frontal view of the chest was obtained COMPARISON: None FINDINGS: Lines and Tubes: None Lungs: Clear Pleura: No effusion. No pneumothorax. Cardiomediastinal contours: Unremarkable Bones: Unremarkable IMPRESSION: No acute disease. Condition at Discharge: Stable Final Diagnosis/Problems List Acute COPD exacerbation, possible Acute chest pain, ruled out ACS Hypertensive urgency, resolved Pulmonary hypertension, CT finding History of Hyperlipidemia Diabetes mellitus Discharge Disposition: Home Discharge Instruct/Medications Diet: Consistent carbohydrate, Cardiac 2g Na,low cholest Activity: No Restrictions, As Tolerated Follow Up/Referral: Follow-up with PCP in 1 week. Follow with Cardiology outpatient. Follow-up with GI outpatient for EGD. Medications: Continue home medications. Start Protonix 40 mg tablet daily Start Carafate 1 gm twice daily New Medications: Pantoprazole Sodium Sesquihydr (Pantoprazole Sodium) 40 Mg Tab 40 MG PO DAILY for 30 Days, #30 TAB Sucralfate (Carafate Susp) 1 Gm/10 Ml Ss 10 ML PO QID for 30 Days, #1200 ML 3 Refills Continued Medications: Aspirin (Aspirin) 81 Mg Chw 1 TAB PO DAILY Enalapril Maleate (Enalapril Maleate) 10 Mg Tab 1 TAB PO DAILY Tlmwdkrjypa-Kslnjptdaapg-Xszru (Trelegy Ellipta 100-62.5-25 Mcg/INH) 1 Aer Aer 1 PUFF INH DAILY Hydrocodone-Acetaminophen (Hydrocodone Bitartrate/AC 10-325 mg) 1 Tab Tab 1 TAB PO QIDPRN, #20 TAB Metformin Hydrochloride (Metformin Hcl) 500 Mg Tab 1 TAB PO BID Nifedipine (Nifedipine Er) 30 Mg Tab 30 MG PO DAILY Rosuvastatin Calcium (Rosuvastatin Calcium) 10 Mg Tab 1 TAB PO HS Tamsulosin Hcl (Tamsulosin Hcl) 0.4 Mg Cap 0.4 MG PO DAILY Care Plan: Follow-up with PCP in 1 week. Follow with Cardiology outpatient. Follow-up with GI outpatient for EGD. Continue home medications. Start Protonix 40 mg tablet daily Start Carafate 1 gm twice daily Scheduled Aspirin (Aspirin), 1 TAB PO DAILY, (Reported) Enalapril Maleate (Enalapril Maleate), 1 TAB PO DAILY, (Reported) Bqkgpbfqpyl-Oqlpfemlsrhn-Zyodr (Trelegy Ellipta 100-62.5-25 Mcg/INH), 1 PUFF INH DAILY, (Reported) Hydrocodone-Acetaminophen (Hydrocodone Bitartrate/AC 10-325 mg), 1 TAB PO QIDPRN Metformin Hydrochloride (Metformin Hcl), 1 TAB PO BID, (Reported) Nifedipine (Nifedipine Er), 30 MG PO DAILY, (Reported) Pantoprazole Sodium Sesquihydr (Pantoprazole Sodium), 40 MG PO DAILY Rosuvastatin Calcium (Rosuvastatin Calcium), 1 TAB PO HS, (Reported) Sucralfate (Carafate Susp), 10 ML PO QID Tamsulosin Hcl (Tamsulosin Hcl), 0.4 MG PO DAILY, (Reported) Discharge Statement: "Patient was advised to return to the ER or call 911 if any headaches, dizziness, shortness of breath, chest pain, abdominal pain, bleeding, fevers, or worsening of medical condition. Patient was counseled about treatment plan, medications, possible side effects, patientverbalized understanding. All questions were answered to the best of my ability. This discharge took greater then 30 minutes in planning, reviewing documentation, counseling the patient, and discussing with other team members." ASSESSMENT ASSESSMENT Assessment Addendum Addendum Addendum I was physically present for the kidd portions of the service provided to patient by THE RESIDENT. I have reviewed the documentation, discussed the case with resident and agree with the resident's documentation except as noted. Also the patient's clinical case was discussed with the patient's nurse. This medical document was created using an electronic medical record system with computerized dictation system. Although this document has been carefully reviewed, there might still be some phonetic and typographical errors. These areas are purely typographical due to imperfections of the software programs, and do not reflect any compromise in the patient's medical care. Late signature. Date of Service: Oct 10, 2024 Billing Provider: TY DENNIS MD Common Visit Codes: 55941-QXI/OBS DISCH DAY >30min Secondary Visit Codes: [id number] CARE PLAN 30 MINUTES (20 minutes) JASWANT ROBERT RESIDENT Oct 10, 2024 12:19 TY DENNIS MD Oct 12, 2024 06:39
[2024-10-10] MEDS ORDERED: SUCRALFATE 1 GM/10 ML ORAL SUSP GT ONE (13:00)
[2024-10-10] MEDS ORDERED: PANT40T PO (14:28)
[2024-10-10] MEDS ORDERED: SUCR1SUS26 PO (14:28)
[2024-10-10] MEDS ORDERED: SUCRALFATE 1 GM/10 ML ORAL SUSP GT SCH (22:00)
[2024-10-10] MEDS ORDERED: ATORVASTATIN 20 MG TAB PO SCH (22:00)
--- NOTE | 2024-10-11 13:00 | DVHSR ---
APPROVED REPORT EXAM: Two-dimensional and M-mode echocardiogram with Doppler and color Doppler. Blood Pressure: 160/51 mmHg INDICATION Chest Pain RISK FACTORS Height: 5'6", Weight: 176 DIMENSIONS LVDd5.6 (3.8-5.7cm)LA (2D)4.9 (1.9-4.0cm)Aortic Root4.6 (2.0-3.7cm) LVDs4.1 (2.5-4.0cm)LA (MM) (1.9-4.0cm)Aortic Cusp Exc2.1 (1.5-2.0cm) EF (%) 50.0 (55-70%)Rt. Atrium3.6 (1.9-4.0cm)Asc. 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
--- NOTE | 2024-10-15 10:37 | ECG ---
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
== END 2024-10-10 15:28 | disposition home or self-care (01) | DRG 305 ==
LOC: ER 08:19 → OVERFLOW 11:35 → TELE-WESTW 23:38
PROVIDERS: ADMIT Internal Medicine; ATTEND Emergency Medicine
DX: I16.0 Hypertensive urgency (principal); J44.1 Chronic obstructive pulmonary disease with (acute) exacerbation; I27.20 Pulmonary hypertension, unspecified; I10 Essential (primary) hypertension; E11.9 Type 2 diabetes mellitus without complications; J43.2 Centrilobular emphysema; E78.5 Hyperlipidemia, unspecified; I25.10 Atherosclerotic heart disease of native coronary artery without angina pectoris
CPT/HCPCS: 36415; 71045; 71250; 80048; 80053; 80061; 82962; 83036; 83735; 84443; 84484; 85025; 93005; 93306; 94640; 96372; 96374; 96375; 99291; G0378; J1815; J2405; J2470